=== PATIENT | male | born 1985 | race Caucasian/White ===

== ENCOUNTER 2016-04-29 00:41 | Inpatient (IN) | payer MEDICAID ==
[2016-04-29] VITALS (26 sets, daily range): BP systolic 91–126; BP diastolic 43–79
[~2016-04-29] VITALS: Ht 180.3 cm; Wt 49.9 kg
[2016-04-29] MEDS ORDERED: ONDANSETRON 4 MG/2 ML VIAL IV PRN (02:15)
[2016-04-29] MEDS ORDERED: ACETAMINOPHEN 650 MG/20.3 ML LIQUID UDC PO PRN (02:15)
[2016-04-29] MEDS ORDERED: MORPHINE SULFATE 2 MG/1 ML DISP.SYRIN IV PRN (02:15)
[2016-04-29] MEDS ORDERED: IV NS 1000 ML 1,000 ML IV PRN (02:15)
[2016-04-29] MEDS ORDERED: METRONIDAZOLE 500 MG/NS 100ML 100 ML IV ONE (03:30)
[2016-04-29] MEDS ORDERED: METRONIDAZOLE 500 MG/NS 100ML 500 MG in PREMIXED 1 EACH IV SCH (06:00)
[2016-04-29] MEDS ORDERED: ESMOLOL HCL 100 MG/10 ML VIAL IV ONE (07:23)
[2016-04-29] MEDS ORDERED: ONDANSETRON 4 MG/2 ML VIAL IV ONE (07:23)
[2016-04-29] MEDS ORDERED: PHENYLEPHRINE 10 MG/1 ML VIAL MC ONE (07:24)
[2016-04-29] MEDS ORDERED: LIDOCAINE HCL 1% 20 ML VIAL MC ONE (07:24)
[2016-04-29] MEDS ORDERED: IV NORMAL SALINE 1000 ML BAG IV ONE (07:25)
[2016-04-29 07:34] LABS: EOSINOPHILS % (AUTO) 0.1 % (0.0-7.0); LYMPHOCYTES # (AUTO) 0.4 K/uL (0.8-4.8); LYMPHOCYTES % (AUTO) 4.2 % (20.5-51.5); MEAN CORPUSCULAR HEMOGLOBIN 28.8 uug (27.0-31.0); MEAN CORPUSCULAR HGB CONC 34 g/dL (32.0-37.0); MEAN CORPUSCULAR VOLUME 83.9 fL (82.0-92.0); MONOCYTES # (AUTO) 0.3 K/uL (0.1-1.30); NEUTROPHILS # (AUTO) 9.3 K/uL (1.8-8.9); NEUTROPHILS % (AUTO) 92.7 % (38.5-71.5); RED BLOOD CELL COUNT(AUTO) 4.53 MIL/uL (4.70-6.10); RED CELL DISTRIBUTION WIDTH 13.6 % (11.5-14.5)
[2016-04-29 07:42] LABS: CALCIUM 7.3 mg/dL (8.5-10.1); MAGNESIUM 1.4 mg/dL (1.8-2.4); PHOSPHOROUS 3.3 mg/dL (2.5-4.9); POTASSIUM 4.7 mmol/L (3.5-5.1)
[2016-04-29 07:43] LABS: PLATELET COUNT (AUTO) 5 K/uL (150-450)
[2016-04-29 07:46] LABS: BILIRUBIN,DIRECT 0.6 mg/dL (0.0-0.2); BILIRUBIN,TOTAL 2.9 mg/dL (0.2-1.0)
[2016-04-29 07:51] LABS: CREATININE 1.6 mg/dL (0.6-1.3)
[2016-04-29] MEDS ORDERED: IV D5/ 0.9% NACL 1,000 ML IV PRN (09:00)
[2016-04-29] MEDS ORDERED: PANTOPRAZOLE SODIUM 40 MG VIAL IV SCH (09:15)
[2016-04-29 09:47] LABS: BAND % (MANUAL) 27 % (0-10); LYMPHOCYTES % (MANUAL) 3 % (20-40); METAMYELOCYTES % 10 % (0-1); MONOCYTES % (MANUAL) 3 % (2-10); MYELOCYTES % 1 % (0-0); NEUTROPHILS % (MANUAL) 56 % (42-75)
[2016-04-29 09:49] LABS: PLATELET ESTIMATE DECRE
[2016-04-29] MEDS ORDERED: VANCOMYCIN IV 750 MG in IV DEXTROSE 5% 250 ML IV ONE (10:00)
[2016-04-29] MEDS ORDERED: MICAFUNGIN SODIUM 100 MG in IV NORMAL SALINE 100 ML IV SCH (10:15)
[2016-04-29] MEDS ORDERED: SODIUM BICARBONATE 8.4% 50 MEQ/50 ML DISP.SYRIN IV ONE (10:45)
[2016-04-29] MEDS ORDERED: HYDROMORPHONE 1 MG/1 ML DISP.SYRIN IV PRN (10:45)
[2016-04-29 10:51] LABS: *BLOOD, URINE 3+ (NEGATIVE); *CLARITY,URINE TURBID (CLEAR); *KETONES,URINE TRACE (NEGATIVE); PH,URINE 8.5 (5.0-8.0); UGLUCOSE NEGATIVE (NEGATIVE)
[2016-04-29] MEDS: CLINDAMYCIN PHOSPHATE IV 900 MG in IV DEXTROSE 5% 100 ML IV SCH ×2 (11:54→19:53)
[2016-04-29 12:11] LABS: *BILIRUBIN,URIN 2+ (NEGATIVE); *PROTEIN,URINE 3+ (NEGATIVE); LEUKOCYTE ESTERASE ,URINE TRACE (NEGATIVE); NITRITE, URINE POSITIVE (NEGATIVE)
[2016-04-29 12:14] LABS: *COLOR,URINE BROWN (YELLOW); BACTERIA,URINE MANY /HPF (NONE SEEN); RBC,URINE TNTC /HPF (0-3); SQUAMOUS EPITHELIAL CELL,UR MODERATE /HPF (NONE SEEN); TRANSITIONAL EPI CELLS,URINE FEW /LPF (NONE SEEN); WBC,URINE 20-50 /HPF (0-3)
[2016-04-29 12:21] LABS: EOSINOPHILS % (AUTO) 0.1 % (0.0-7.0); HEMOGLOBIN 11.5 g/dL (14.0-18.0); LYMPHOCYTES # (AUTO) 0.6 K/uL (0.8-4.8); LYMPHOCYTES % (AUTO) 5.9 % (20.5-51.5); MEAN CORPUSCULAR HEMOGLOBIN 29.4 uug (27.0-31.0); MEAN CORPUSCULAR HGB CONC 35 g/dL (32.0-37.0); MEAN CORPUSCULAR VOLUME 83.9 fL (82.0-92.0); MONOCYTES # (AUTO) 0.7 K/uL (0.1-1.30); NEUTROPHILS # (AUTO) 9.2 K/uL (1.8-8.9); RED CELL DISTRIBUTION WIDTH 14.1 % (11.5-14.5); WHITE BLOOD COUNT (AUTO) 10.5 K/uL (4.0-11.2)
[2016-04-29 12:27] LABS: CALCIUM 7.3 mg/dL (8.5-10.1); POTASSIUM 4.6 mmol/L (3.5-5.1)
[2016-04-29 12:28] LABS: CREATININE 1.9 mg/dL (0.6-1.3)
[2016-04-29 12:32] LABS: HEMATOCRIT 32.7 % (40.0-50.0); PLATELET COUNT (AUTO) 4 K/uL (150-450)
[2016-04-29] MEDS: MEROPENEM 1 G in IV NORMAL SALINE 100 ML IV SCH ×2 (12:32→20:00)
[2016-04-29 12:48] LABS: BILIRUBIN,TOTAL 5.3 mg/dL (0.1-1.0); PHOSPHOROUS 2.9 mg/dL (2.5-4.9)
[2016-04-29 12:49] LABS: ALBUMIN 1.8 g/dL (3.4-5.0); MAGNESIUM 1.3 mg/dL (1.8-2.4); TOTAL PROTEIN, SERUM 4.6 g/dL (6.4-8.2)
[2016-04-29 13:00] LABS: BAND % (MANUAL) 47 % (0-10); LYMPHOCYTES % (MANUAL) 8 % (20-40); METAMYELOCYTES % 4 % (0-1); MONOCYTES % (MANUAL) 6 % (2-10); MYELOCYTES % 1 % (0-0); NEUTROPHILS % (MANUAL) 34 % (42-75)
[2016-04-29 13:01] LABS: ANISOCYTOSIS 1+; PLATELET ESTIMATE DECRE
[2016-04-29 13:15] LABS: HIV-1 p24 ANTIGEN NON REACTIVE (NONREACTIVE); HIV-1/2 ANTIBODY NON REACTIVE (NONREACTIVE)
[2016-04-29] MEDS ORDERED: BACITRACIN 50,000 UNITS VIAL ONE (13:19)
[2016-04-29] MEDS ORDERED: methylPREDNISolone SOD SUCC 125 MG/2 ML VIAL IV SCH (13:45)
[2016-04-29] MEDS ORDERED: FENTANYL CITRATE 100 MCG/2 ML AMPUL ONE ×2 (14:17→15:22)
[2016-04-29] MEDS ORDERED: MIDAZOLAM HCL 2 MG/2 ML VIAL ONE (14:17)
[2016-04-29] MEDS ORDERED: ROCURONIUM BROMIDE 50 MG/5 ML VIAL ONE (14:49)
[2016-04-29] MEDS: MAGNESIUM SULFATE/D5W 100 ML IV SCH ×3 (16:54→19:28)
[2016-04-29 19:05] LABS: THYROID STIMULATING HORMONE 0.941 mIU/mL (0.358-3.740)
[2016-04-29 19:11] LABS: FOLIC ACID 16.6 NG/ML (8.6-58.9)
[2016-04-29 19:41] LABS: *RHEUMATOID FACTOR SCREEN NEGATIVE (NEGATIVE)
[2016-04-29] MEDS ORDERED: DESFLURANE ANESTHESIA GAS 240 ML BOTTLE IH ONE (22:39)
[2016-04-29] MEDS ORDERED: PROPOFOL 200 MG/20 ML BOTTLE IV ONE (22:39)
[2016-04-30] MEDS ORDERED: HYDROGEN PEROXIDE 3% 118 ML BOTTLE TOP SCH (09:00)
[2016-05-01 11:17] LABS: HCV AB <0.1 s/co ratio (0.0-0.9); HEPATITIS B SURFACE AB Reactive (.); HEPATITIS B SURFACE AG Negative (Negative)
[2016-05-01 13:43] LABS: A/G RATIO 1.1 (0.7-1.7); ALBUMIN 1.8 g/dL (2.9-4.4); ALPHA-1-GLOBULIN 0.3 g/dL (0.0-0.4); ALPHA-2-GLOBULIN 0.3 g/dL (0.4-1.0); BETA GLOBULIN 0.6 g/dL (0.7-1.3); GAMMA GLOBULIN 0.5 g/dL (0.4-1.8); GLOBULIN, TOTAL 1.6 g/dL (2.2-3.9); M-SPIKE Not Observed g/dL (Not Observed)
[2016-05-01 18:08] LABS: *ANTI-SCLERODERMA-70 AB 0.3 AI (0.0-0.9); *RNP ANTIBODIES <0.2 AI (0.0-0.9); *SJOGREN'S ANTI-SS-A <0.2 AI (0.0-0.9); *SJOGREN'S ANTI-SS-B <0.2 AI (0.0-0.9); *SMITH ANTIBODIES <0.2 AI (0.0-0.9); ANTI-DNA(DS) AB, QN <1 IU/mL (0-9); ANTI-NUCLEAR AB DIRECT Negative (Negative)
== END 2016-04-29 22:40 | disposition short-term general hospital (02) | DRG 720 ==
LOC: CCU 00:41
PROVIDERS: ADMIT Internal Medicine; ATTEND Internal Medicine
PROC: 30233R1 Transfusion of Nonautologous Platelets into Peripheral Vein, Percutaneous Approach (ICD-10-PCS; principal; 2016-04-29 14:26)
PROC: 30233K1 Transfusion of Nonautologous Frozen Plasma into Peripheral Vein, Percutaneous Approach (ICD-10-PCS; principal; 2016-04-29 14:26)
PROC: B548ZZA Ultrasonography of Superior Vena Cava, Guidance (ICD-10-PCS; principal; 2016-04-29 14:26)
PROC: 0HBAXZZ Excision of Inguinal Skin, External Approach (ICD-10-PCS; principal; 2016-04-29 14:26)
PROC: 0T9B80Z Drainage of Bladder with Drainage Device, Via Natural or Artificial Opening Endoscopic (ICD-10-PCS; principal; 2016-04-29 14:26)
PROC: 02HV33Z Insertion of Infusion Device into Superior Vena Cava, Percutaneous Approach (ICD-10-PCS; principal; 2016-04-29 14:26)
DX: A41.9 Sepsis, unspecified organism (principal); D65 Disseminated intravascular coagulation [defibrination syndrome]; K72.00 Acute and subacute hepatic failure without coma; R65.21 Severe sepsis with septic shock; E43 Unspecified severe protein-calorie malnutrition; D68.59 Other primary thrombophilia; N17.9 Acute kidney failure, unspecified; K92.2 Gastrointestinal hemorrhage, unspecified; G82.20 Paraplegia, unspecified; E83.42 Hypomagnesemia; N49.3 Fournier gangrene; N49.2 Inflammatory disorders of scrotum; Z98.1 Arthrodesis status; V89.2XXS Person injured in unspecified motor-vehicle accident, traffic, sequela; N41.2 Abscess of prostate; R74.0 Nonspecific elevation of levels of transaminase and lactic acid dehydrogenase [LDH]; D50.0 Iron deficiency anemia secondary to blood loss (chronic); T83.018A Breakdown (mechanical) of other urinary catheter, initial encounter; Y83.9 Surgical procedure, unspecified as the cause of abnormal reaction of the patient, or of later complication, without mention of misadventure at the time of the procedure; Y92.89 Other specified places as the place of occurrence of the external cause; Y73.2 Prosthetic and other implants, materials and accessory gastroenterology and urology devices associated with adverse incidents
CPT/HCPCS: 36415; 71010; 82746; 83550; 83605; 83735; 84100; 84155; 84165; 84443; 85025; 85730; 86038; 86140; 86430; 86706; 86803; 86850; 86900; 86901; 87040; 87070; 87075; 87077; 87086; 87340; 87806; A4649; C1769; C9113; J2185; J2248; J2250; J2370; J2405; J2930; J3010; J3370; J3475; J3490; J7030; J7060; P9016-BL; P9017-BL; P9021; P9035-BL